=== PATIENT | male | born 1975 | race Caucasian/White ===

== ENCOUNTER 2021-06-14 15:08 | Outpatient (CLI) | payer OTHER, SELFPAY ==
[2021-06-14 15:34] LABS: Basophils Percent Auto 0.4 % (0.2-1.2); Eosinophils Absolute Auto 0.2 K/mm3 (0-0.3); Eosinophils Percent Auto 2.2 % (0-4.4); Hematocrit 43.6 % (42.0-52.0); Hemoglobin 15.3 g/dL (14.0-18.0); Immature Granulocyte Absolute 0.03 K/mm3 (0.00-0.031); Immature Granulocyte Percent A 0.4 % (0-0.5); Lymphocytes Absolute Auto 2.02 K/mm3 (0.9-3.2); Lymphocytes Percent Auto 29.6 % (18.3-44.2); Mean Corpuscular HGB Conc 35.1 g/dl (32-36); Mean Corpuscular Hemoglobin 31.3 pg (26-34); Mean Corpuscular Volume 89.2 fl (80-100); Mean Platelet Volume 9.2 fl (7.4-10.4); Monocytes Absolute Auto 0.6 K/mm3 (0.1-0.6); Monocytes Percent Auto 8.6 % (2.6-8.5); Neutrophils Percent Auto 58.8 % (45.5-73.1); Platelet Count Result 179 k/mm3 (150-375); Red Blood Count 4.89 M/mm3 (4.6-6.20); Red Cell Distribution Width 12.2 % (11.5-14.5); White Blood Count 6.8 K/mm3 (4.5-10.0)
[2021-06-14 15:52] LABS: Anion Gap 7 mmol/L (8-16); Blood Urea Nitrogen 20 mg/dL (9-20); Calcium 8.7 mg/dL (8.4-10.2); Carbon Dioxide 25 mmol/L (22-30); Chloride 107 mmol/L (98-107); Estimated Glomerular Filt Rate 59; Glucose 97 mg/dL (65-110); Potassium 3.8 mmol/L (3.4-5.0); Sodium 139 mmol/L (137-145)
[2021-06-17 12:16] LABS: Testosterone Free 76.6 pg/mL (35.0-155.0); Testosterone Total 397 ng/dL (250-1100)
== END 2021-06-14 15:09 | disposition home or self-care (01) ==
LOC: ANHLAB 15:10
PROVIDERS: PCP Family Medicine; Visit Provider Family Medicine
DX: I10 Essential (primary) hypertension (principal); R68.82 Decreased libido
CPT/HCPCS: 36415; 80048; 84402; 84403; 84443; 85025

== ENCOUNTER 2023-10-30 09:35 | Outpatient (CLI) | payer OTHER, SELFPAY ==
--- NOTE | ~2023-10-30 | XR_ITS ---
Clinical Indication: Shortness of breath PA and lateral views of the chest: Comparison: None Findings: Possible minimal central congestive change. No focal consolidation or pleural effusion. Ca rdiomediastinal silhouette is within normal limits. Bones and soft tissues are unremarkable, aside fr om cervical fixation hardware. Impression: Possible minimal central congestive change. Reviewed, dictated and finalized at location . Impression: Possible minimal central congestive change.
[2023-10-30 10:10] LABS: D Dimer 0.32 ug/mL (<0.48)
== END 2023-10-30 09:36 | disposition home or self-care (01) ==
LOC: ANHLAB 09:36
PROVIDERS: PCP Internal Medicine; Visit Provider Internal Medicine
DX: R06.09 Other forms of dyspnea (principal)
CPT/HCPCS: 36415; 71046; 85380

== ENCOUNTER 2025-02-26 09:14 | Outpatient (CLI) | payer OTHER, SELFPAY ==
--- OUTSIDE RECORDS SUMMARY | 2025-02-26 09:58 | XMS_ITS | Clinical Summary ---
Author Organization [facility] [address] [place] [address] [address] [place] [address] Care Team Providers Care Welder First Class Name Role Phone Unavailable Primary Care Provider Unavailabl e Social History Tobacco Use Types Packs/Day Years Used Date Smoking Tobacco: Never Assessed Sex and Gender Information Value Date Recorded Sex Assigned at Not on file Legal Sex Male 9:54 PM CDT Gender Identity Not on file Sexual Orientation Not on file Plan of Treatment Health Maintenance Due Date Last Done Comments HEPATITIS B VACCINES (1 of 3 - 19+ 3-dose series) 11/1993 DTAP/TDAP/TD VACCINES (2 - Td or Tdap) 03/18/2013 COLORECTAL SCREENING 07/24/2019 Colorectal Cancer Screening 07/24/2019 FIT-DNA Q 3 years 07/24/2019 FIT/FOBT Q 1 year 07/24/2019 Flex Sig/CT Colonography Q 5 years 07/24/2019 ZOSTER VACCINE (1 of 2) 2024 INFLUENZA VACCINE (#1) 2024 Insurance [employer] OPEN ACCESS
--- OUTSIDE RECORDS SUMMARY | 2025-02-26 09:58 | XMS_ITS | Clinical Summary ---
Author Organization [facility] Address [address] [place] [address] Care Team Providers Care Jewelry Engraver Name Role Phone Alfonso White MD Primary Care Provider [phone] Alfonso White MD Unavailable [phone] Source Comments [facility],non-owned Affiliates and Associated Physician Practices is amultiple site organization consisting of ambulatory clinics and hospital sitesin [place], [place], [place] and [place]. This disclosure is being madepursuant to the Care Everywhere program and may not contain all information available regarding this patient. Last updated 18.[facility] Allergies No known active allergies Medications * Be aware that medications may not be up to date on this document. Alwaysverify current medications with the patient. losartan (COZAAR) 100 MG tablet Take 1 (one) tablet by mouth once daily Active amLODIPine (NORVASC) 5 MG tablet Take 5 mg by mouth once daily Active Cyclobenzaprine HCl (FLEXERIL PO) Take 1 tablet by mouth once daily Active meloxicam (MOBIC) 15 MG tabletIndicatio ns:Acute medial meniscus tear of right knee, initial encounter Take 1 (one) tablet by mouth once daily 30 tablet 1 Active Additional Information Patient not taking.Reported on 03/24/2021 buPROPion SR 12hr (WELLBUTRIN-SR) 150 MG tablet TAKE 1 TABLET BY MOUTH DAILY FOR 2 WEEKS THEN TAKE 2 TABLETS BY MOUTH DAILY 1 Active amLODIPine (NORVASC) 2.5 MG tablet Take 2.5 mg by mouth once daily 1 Active albuterol HFA (PROVENTIL; VENTOLIN; PROAIR) 108 (90 Base) MCG/ACT inhaler Inhale 2 puffs by mouth 4 times daily as needed 1 Active rosuvastatin (Crestor) 5 MG tablet 3 Active predniSONE (Deltasone) 10 MG tablet Take 4 tablets daily for 4 days, take 3 tablets daily for 2 days, take 2 tablets daily for 2 days, then take 1 tablet daily for 2 days 28 tablet 4 Active azithromycin (Zithromax) 250 MG tabletIndicatio ns:Pharyngitis 500 mg PO on the first day; then, 250 mg PO daily for 4 days Reasons: Throat Infection 6 tablet 4 Active Active Problems Problem Noted Date Diagnosed Date Frontal sinus pain 03/24/2021 Social History Tobacco Use Types Packs/Day Years Used Date Smoking Tobacco: Never Smokeless Tobacco: Never Tobacco Cessation:Counseling Given: Not Answered Alcohol Use Standard Drinks/Week Comments Yes 0 (1 standard drink = 0.6 oz pur e alcohol) PHQ-2 Answer Date Recorded Patient Health Questionnaire-2 Score 0 09/20/2023 Sex and Gender Information Value Date Recorded Sex Assigned at Not on file Legal Sex Male 12:36 PM CDT Gender Identity Not on file Sexual Orientation Not on file Last Filed Vital Signs Vital Sign [place] Time Taken Comments Blood Pressure 146/86 09/20/2023 4:11 PM CDT Pulse 90 09/20/2023 4:11 PM CDT Temperature 37.3 C (99.1 F) 09/20/2023 4:11 PM CDT Respiratory Rate 18 03/26/2021 9:42 AM CONCRETE FLOATER Oxygen Saturation 99% 09/20/2023 4:11 PM CDT Inhaled Oxygen Concentration - - Weight 138.2 kg (304 lb 9.6 oz) 09/20/2023 4:11 PM CDT Height 175.3 cm (5' 9) 03/26/2021 9:42 AM CONCRETE FLOATER Body Mass Index 44.98 03/26/2021 9:42 AM CONCRETE FLOATER Plan of Treatment Health Maintenance Due Date Last Done Comments COLOGUARD (AGES 45-75) - COL ON CA SCREENING 1974 COLON MONITORING 1974 COLONOSCOPY - COLON CA SCREENING 1974 CT COLONOGRAPHY - COLON CA SCREENING 1974 Colorectal Cancer Screening 1974 FIT - COLON CA SCREENING 1974 FLEX SIG - COLON CA SCREENING 1974 HIV SCREENING 1989 HEPATITIS C SCREENING 07/18/1992 DTAP/TDAP/TD VACCINES (1 - Tdap) 1993 HEPATITIS B VACCINE (1 of 3 - 19+ 3-dose series) 1993 DEPRESSION SCREENING 04/17/2024 09/20/2023 PNEUMOCOCCAL VACCINE 50+ (1 of 1 - PCV) 2024 ZOSTER VACCINE (1 of 2) 2024 COVID-19 VACCINE (3 - 2024-2 6 season) 2024 01/18/2021, 12/23/2020 INFLUENZA VACCINE (#1) 2024 HIB VACCINE Aged Out No longer eligi ble based on patient's age to complete this topic HPV VACCINE Aged Out No longer eligi ble based on patient's age to complete this topic MENINGOCOCCAL (Group B) VACCINE SHARED DECISION-MAKING Aged Out No longer eligible based on patient's age to complete this topic MENINGOCOCCAL GROUPS A/C/Y/W VACCINE Aged Out No longer eligible b ased on patient's age to complete this topic Insurance [employer] HE[employer]LINK [employer] HE[employer]LINK Care Teams Jewelry Engraver Relationship Specialty [place] [id number] [address] PCP - General 03/29/21 [place] [id number] [address] 03/29/21
--- OUTSIDE RECORDS SUMMARY | 2025-02-26 09:59 | XMS_ITS | Clinical Summary ---
Author Organization [facility] Address [facility] [place] [address] Care Team Providers Care Professor Of Industrial Technology Name Role Phone None, Provider MD Primary Care Provider Unavaila ble Allergies No known active allergies Medications losartan 100 MG tablet Take 1 tablet (100 mg total) by mouth daily. Active amLODIPine (NORVASC) 10 MG tablet Take 1 tablet (10 mg total) by mouth daily. 02/04/20 22 Active dextromethorpha n-guaiFENesin ER (MUCINEX DM) 30-600 MG TABLET SR 12 HR 12 hr tabletIndicatio ns:Non-recurren t acute suppurative otitis media of left ear without spontaneous rupture of tympanic membrane Take 1 tablet by mouth every 12 (twelve) hours as needed. 28 tablet 05/06/19 23 Active rosuvastatin (CRESTOR) 5 MG tablet 03/29/20 23 Active WEGOVY 1.7 mg/dose injection (PEN) INJECT 1.7 MG SUBCUTANEOUSLY ONCE A WEEK 05/04/19 24 Active Testosterone Cypionate Powder 04/14/20 23 Active Active Problems Problem Noted Date Diagnosed Date Hypertension 09/13/2014 Depression 02/14/2012 Overview (06/04/2019): Note: depression is situational Date Onset: 02/14/2012 Obesity 02/14/2012 Social History Tobacco Use Types Packs/Day Years Used Date Smoking Tobacco: Never Smokeless Tobacco: Never Tobacco Cessation:Counseling Given: No PHQ-2 Answer Date Recorded Patient Health Questionnaire-2 Score 0 05/16/2023 Sex and Gender Information Value Date Recorded Sex Assigned at Not on file Legal Sex Male 5:28 PM CDT Gender Identity Not on file Sexual Orientation Not on file Last Filed Vital Signs Vital Sign [place] Time Taken Comments Blood Pressure 147/88 05/16/2023 4:42 PM AGED OR DISABLED CARER Pulse 87 05/16/2023 4:42 PM AGED OR DISABLED CARER Temperature 37.2 C (98.9 F) 05/16/2023 4:08 PM AGED OR DISABLED CARER Respiratory Rate 20 05/16/2023 4:08 PM AGED OR DISABLED CARER Oxygen Saturation 95% 05/16/2023 4:42 PM AGED OR DISABLED CARER Inhaled Oxygen Concentration - - Weight 138.1 kg (304 lb 6 oz) 05/16/2023 4:08 PM AGED OR DISABLED CARER Height 175.3 cm (5' 9) 05/16/2023 4:08 PM AGED OR DISABLED CARER Body Mass Index 44.95 05/16/2023 4:08 PM AGED OR DISABLED CARER Plan of Treatment Health Maintenance Due Date Last Done Comments Colorectal Cancer Screening Colonoscopy (10 Years) 1974 Annual Physical 1977 Hepatitis C 1992 Hepatitis B Vaccines (1 of 3 - 19+ 3-dose series) 1993 DTaP, Tdap and Td Vaccines ( 2 - Td or Tdap) 03/18/2013 03/18/2003 PHQ-2 (Physician [place]) 04/17/2024 05/16/2023 Pneumococcal Vaccine: 50+ Ye ars (1 of 1 - PCV) 2024 Zoster Vaccines (1 of 2) 2024 COVID-19 Vaccine (1 - 2024-2 6 season) 2024 Influenza Adult (#1) 2025 Hepatitis A Vaccines Aged Out No long er eligible based on patient's age to complete this topic Meningococcal B Vaccine Aged Out No l onger eligible based on patient's age to complete this topic Meningococcal Vaccine Aged Out No gregg anabel eligible based on patient's age to complete this topic RSV Immunizations Under 20 Months Aged Out No longer eligible based on patient's age to complete this topic Insurance [employer] OPEN ACCESS [facility] Care Teams Professor Of Industrial Technology Relationship Specialty Start Date End Date None, Provider, MD PCP - General UNKNOWN PHYSICIAN SPECIALTY 05/16/23
--- OUTSIDE RECORDS SUMMARY | 2025-02-26 09:59 | XMS_ITS ---
Author Organization [facility] Care Team Providers Care Arc Cutter Plasma Arc Name Role Phone Michael Diallo Unavailable Unavailable Care Team Name Role Address Phone Organization Dates Michael Diallo PCP [address], [place], [place], [id number], [place] (Office): [phone] [facility] 03/19/2014 - 03/19/2014 Insurance Providers Reason for Referral No Reasons for Referral Entered Social History Social History Observation Description Start Date End Date Code Code System Current Smoking Status Tobacco smoking consumption unknown [id number] SNOMED CT Sex Assigned At Male 1975 [address]-9 [facility] Gender Identity Sexual Orientation
[2025-02-26 13:11] LABS: Hematocrit 52.1 % (42.0-52.0); Hemoglobin 17.8 g/dL (14.0-18.0); Immature Granulocyte Percent A 0.5 % (0-0.5); Lymphocytes Absolute Auto 1.43 K/mm3 (0.9-3.2); Mean Corpuscular HGB Conc 34.2 g/dl (32-36); Mean Corpuscular Hemoglobin 31.5 pg (26-34); Mean Corpuscular Volume 92.2 fl (80-100); Nucleated Red Blood Cells Absolute Auto 0.000 K/mm3 (0.0-0.012); Nucleated Red Blood Cells Perc 0.0 % (0.0-0.2); Platelet Count Result 168 k/mm3 (150-375); Red Blood Count 5.65 M/mm3 (4.6-6.20); White Blood Count 6.5 K/mm3 (4.5-10.0)
[2025-02-26 13:21] LABS: Alanine Aminotransferase 35 U/L (6-50); Albumin Level 4.6 g/dL (3.5-5.1); Alkaline Phosphatase 64 U/L (38-126); Anion Gap 8 mmol/L (4-12); Aspartate Amino Transferase 44 U/L (17-59); Bilirubin,Total 1.5 mg/dL (0.2-1.3); Blood Urea Nitrogen 20 mg/dL (9-20); Calcium 9.0 mg/dL (8.4-10.2); Carbon Dioxide 25 mmol/L (22-30); Chloride 104 mmol/L (98-107); Cholesterol 212 mg/dL (0-200); Estimated Glomerular Filt Rate > 60; Glucose 78 mg/dL (65-110); HDL Direct 47 mg/dL; Potassium 4.0 mmol/L (3.4-5.0); Sodium 137 mmol/L (137-145); Total Protein 7.5 g/dL (6.3-8.2); Triglycerides 51 mg/dL (<150)
== END 2025-02-26 09:15 | disposition home or self-care (01) ==
LOC: ANHGOSHLAB 09:15
PROVIDERS: PCP Internal Medicine; Visit Provider Clinical Nurse Specialist
DX: I10 Essential (primary) hypertension (principal); E78.2 Mixed hyperlipidemia; G47.33 Obstructive sleep apnea (adult) (pediatric)
CPT/HCPCS: 36415; 80053; 80061; 85025